=== PATIENT | female | born 1955 | race Caucasian/White ===

== ENCOUNTER 2017-09-10 07:21 | Inpatient (IN) | payer BC, OTHER ==
[2017-09-02 14:28] VITALS: BMI 23.0
--- NOTE | 2017-09-02 14:59 | PAT Medication Instructions ---
Service Date Sep 02, 2017. Current Home Medication List Albuterol Hfa (Ventolin Hfa), 2 PUFFS INH Q6H PRN for PRN Atenolol (Tenormin), 50 MG PO QAM Atomoxetine (Strattera), 100 MG PO QAM Clonazepam (Klonopin), 0.5 MG PO BID PRN for PRN Fluticasone Prop/Salmeterol (Advair Diskus 500/50 60 Dose), 1 PUFF INH BID Losartan Potassium (Cozaar), 100 MG PO QAM Multivitamin (Multivitamin), 1 TAB PO QAM [Iton Tab], 1 TAB PO QAM Medication Instructions For Your Scheduled Surgery - Hold the following medications the morning of surgery: Atomoxetine (Strattera), 100 MG PO QAM Clonazepam (Klonopin), 0.5 MG PO BID PRN for PRN Losartan Potassium (Cozaar), 100 MG PO QAM Multivitamin (Multivitamin), 1 TAB PO QAM [Iton Tab], 1 TAB PO QAM - Take the following medications the morning of surgery with a sip of water: Albuterol Hfa (Ventolin Hfa), 2 PUFFS INH Q6H PRN for PRN (if needed) Atenolol (Tenormin), 50 MG PO QAM Fluticasone Prop/Salmeterol (Advair Diskus 500/50 60 Dose), 1 PUFF INH BID - Take the following medications as scheduled the night before surgery: Albuterol Hfa (Ventolin Hfa), 2 PUFFS INH Q6H PRN for PRN (if needed) Clonazepam (Klonopin), 0.5 MG PO BID PRN for PRN (if needed) Fluticasone Prop/Salmeterol (Advair Diskus 500/50 60 Dose), 1 PUFF INH BID If you have any questions please call us at [phone] or [phone] or [phone]
[2017-09-02 16:07] LABS: PTT PATIENT 24.3 SECONDS (21.0-31.0)
[2017-09-03 06:23] LABS: HEMOGLOBIN A1C 5.5 % (4.5-5.6)
--- NOTE | 2017-09-09 19:23 | HISTORY & PHYSICAL EXAMINATION ---
DATE OF ADMISSION: 09/10/2017 CHIEF COMPLAINT: Chronic left shoulder pain and decreased strength. HISTORY OF PRESENT ILLNESS: This is a 62-year-old female patient of Dr. Harris'samira complaining of chronic left shoulder pain and weakness originally diagnosed with a fall at home. She failed conservative treatment including intraarticular injections, over the counter anti-inflammatories and arthroscopic surgeries x2. She now wishes to proceed with a left reverse total shoulder arthroplasty. PAST MEDICAL HISTORY: Hypertension, irregular heartbeat, asthma, anxiety. SOCIAL HISTORY: Nonsmoker, nondrinker. FAMILY HISTORY: Noncontributory. PAST SURGICAL HISTORY: Elbert-en-Y bypass surgery, shoulder surgery x2, breast biopsy. MEDICATIONS: 1. Advair Diskus 1 puff 2 times daily as needed. 2. Albuterol sulfate inhaler 90 mcg 2 puffs q. 12 hours p.r.n. 3. Klonopin 1 mg every 2 days as needed. 4. Hyzaar 50/12.5 mg 1 tablet daily. 5. Atenolol 50 mg daily. 6. Strattera 100 mg daily. 7. Losartan 100 mg daily. 8. Iron 325 daily. ALLERGIES: IRON SUCROSE COMPLEX INCLUDING VENOFER. PHYSICAL EXAMINATION: GENERAL: Well-developed, well-nourished 62-year-old female patient of Dr. Harris'samira complaining of chronic left shoulder pain. HEENT: Normocephalic, atraumatic. Extraocular motions are intact. Pupils are equal and reactive to light. HEART: Regular rate and rhythm. No murmurs are appreciated. LUNGS: Clear. ABDOMEN: Soft and nontender. Bowel sounds present. EXTREMITIES: Left shoulder reveals limited range of motion with pain and crepitation. She has 3/5 strength globally. NEUROLOGIC: Neurovascularly she is intact in her left upper extremity. DIAGNOSES: Left shoulder chronic rotator cuff arthropathy with a history of hypertension, irregular heartbeat, asthma, anxiety. PLAN: The patient was advised of her diagnosis. Indications, risks, benefits, and postop course have all been reviewed. The patient wishes to proceed with a left shoulder reverse total shoulder arthroplasty. Necessary consent forms, preoperative testing and clearances will be obtained.
[~2017-09-10] VITALS: Ht 157.5 cm; Wt 57.5 kg
[2017-09-10] VITALS (8 sets, daily range): BP systolic 91–120; BP diastolic 57–73; PULSE 73–99; TEMP 36.3–37.2; O2SAT 96–99; Ht 157.5 cm; Wt 57.5 kg
[~2017-09-10 07:21] MED LIST: ACETAMINOPHEN 500 MG TAB PO SCH; ADVIN50/60 INH; ATEN50TA8 PO; ATOM25CA PO; BUPIVACAINE 0.5 % 5 MG/1 ML PF 10ML VIAL ONE; CEFAZOLIN 1000MG IV PUSH 7.5 ML IV SCH; CLON1TAB3 PO; CLONIDINE HCL 100 MCG/ML SYRINGE ONE; CeleBREX 200 MG CAP PO SCH; DEXAMETHASONE 4 MG TAB PO SCH; FAMOTIDINE 20 MG TAB PO SCH; FERR-24 PO; GABAPENTIN 600 MG PO SCH; LACTATED RINGER'S 1000ML 1,000 ML IV SCH; LIDOCAINE HCL 2% 2 ML VIAL (20MG/ML) ONE; LOSA1TAB38 PO; MEPIVACAINE HCL 1.5% 30 ML VIAL ONE; METOCLOPRAMIDE HCL 10 MG TAB PO SCH; MULT-506 PO; PROPOFOL IV EMULSION 10 MG/ML 20 ML VIAL IV ONE; VNTHFA/IN INH
[2017-09-10] MEDS ORDERED: MIDAZOLAM HCL 1 MG/ML 2ML VIAL ONE (08:06)
[2017-09-10] MEDS ORDERED: FENTANYL CITRATE INJ 50 MCG/1 ML 2 ML VIAL ONE (08:07)
[2017-09-10] MEDS ORDERED: ROCURONIUM BROMIDE 10 MG/ML 5 ML VIAL IV ONE ×2 (08:10→12:15)
--- NOTE | 2017-09-10 09:44 | History & Physical Bridge Note ---
H&P Re-Evaluation Bridge Note: I have examined the patient, reviewed the History & Physical and in the interval since the performance of the History & Physical I have noted the following changes of clinical significance: No changes noted
[2017-09-10] MEDS ORDERED: BACITRACIN 50000 UNIT VIAL ONE (09:48)
[2017-09-10] MEDS ORDERED: ONDANSETRON INJ 2 MG/ML 2 ML VIAL ONE (10:30)
[2017-09-10] MEDS ORDERED: DEXAMETHASONE SOD INJ 4 MG/ML VIAL ONE (10:30)
[2017-09-10] MEDS ORDERED: NEOSTIGMINE METHYLSULFATE 5 MG/5 ML SYR ONE (10:55)
[2017-09-10] MEDS ORDERED: GLYCOPYRROLATE INJ 0.2 MG/ML VIAL ONE ×2 (10:55→12:34)
[2017-09-10] MEDS ORDERED: EpHEDrine SULFATE INJ 50 MG/ML AMP ONE (11:06)
--- NOTE | 2017-09-10 13:03 | [facility] Post Operative Brief Note ---
Immediate Operative Summary Operative Date Sep 10, 2017. Pre-Operative Diagnosis Left Shoulder Chronic Rotator Cuff Arthropathy,end stage glenohumeral djd,failed rotator cuff repair,nonrepairable rotator cuff Post-Operative Diagnosis same as pre-operative Procedure(s) Performed Left Reverse Total Shoulder Arthroplasty, Left Biceps Tenodesis, Hardware removal (suture anchors). Surgeon Dr. Joe Harris Short Filler Bunch Machine Operator Surgeon(s) Donato Rodas PA-C Estimated Blood Loss 100mL Findings Consistent with Post-Op Diagnosis Specimens Permanent: A. Left Humeral Head B. Explanted Suture anchors Drains 2 hemovac Anesthesia Type General Complication(s) none
[2017-09-10] MEDS ORDERED: ONDANSETRON INJ 2 MG/ML 2 ML VIAL IV PRN ×2 (13:15)
[2017-09-10] MEDS ORDERED: CLONAZEPAM 0.5 MG TAB PO PRN (13:15)
[2017-09-10] MEDS ORDERED: FLUMAZENIL 0.1 MG/1 ML 10 ML VIAL IV PRN (13:15)
[2017-09-10] MEDS ORDERED: SOD PHOSPHATE/SOD BIPHOSPHATE ENEMA 132 ML BTL PR PRN (13:15)
[2017-09-10] MEDS ORDERED: HYDROmorphone INJ 1 MG/ML SYR IV PRN (13:15)
[2017-09-10] MEDS ORDERED: ZOLPIDEM TARTRATE 5 MG TAB PO PRN (13:15)
[2017-09-10] MEDS ORDERED: ATROPINE SULFATE 0.1 MG/ML 5ML SYR IV PRN (13:15)
[2017-09-10] MEDS ORDERED: MAGNESIUM HYDROXIDE SUSP 30 ML UDC PO PRN (13:15)
[2017-09-10] MEDS ORDERED: ALBUTEROL HFA 8 GM INHALER INH PRN (13:15)
[2017-09-10] MEDS ORDERED: METOCLOPRAMIDE HCL INJ 5 MG/ML 2 ML VIAL IV PRN (13:15)
[2017-09-10] MEDS ORDERED: NALOXONE HCL 0.4 MG/1 ML VIAL/CARP IV PRN ×2 (13:15)
[2017-09-10] MEDS ORDERED: EpHEDrine SULFATE INJ 50 MG/ML AMP IV PRN (13:15)
[2017-09-10] MEDS ORDERED: MoRPHine SULFATE 2 MG/ML CARP IV PRN (13:15)
[2017-09-10] MEDS ORDERED: PROMETHAZINE HCL INJ 12.5 MG in SODIUM CHLORIDE 0.9% 50ML 50 ML IV PRN (13:15)
[2017-09-10] MEDS ORDERED: BISACODYL 10 MG SUPP PR PRN (13:15)
--- NOTE | 2017-09-10 13:30 | DIAGNOSTIC IMAGING REPORT ---
L SHOULDER MIN 2 VIEWS ROUTINE CLINICAL HISTORY: Post shoulder surgery COMPARISON: None. DISCUSSION: Anatomic alignment status post total left shoulder arthroplasty. Expected soft tissue postoperative change. Contact between prosthetic and underlying bone. Expected soft tissue postoperative change IMPRESSION: Anatomic alignment posttotal left shoulder arthroplasty. The above report was generated using voice recognition software. It may contain grammatical, syntax or spelling errors. Electronically signed by: Donato Cervantes M.D. 09/10/2017 1:29 PM Dictated Date/Time: 09/10/2017 1:28 PM
--- NOTE | 2017-09-10 13:47 | Anesthesiology Progress Note ---
Anesthesia Post Op Note Date & Time Sep 10, 2017 at 13:47 Vital Signs Pain Intensity: 0 Vital Signs Past 12 Hours Date Time Temp Pulse Resp B/P (MAP) Pulse Ox O2 Delivery O2 Flow Rate FiO2 09/10/17 13:40 70 14 107/69 100 Nasal Cannula 2 09/10/17 13:30 36.4 67 14 106/71 100 Oxymask 8 09/10/17 13:20 66 18 114/74 100 Oxymask 8 09/10/17 13:13 35.8 72 16 106/74 100 Oxymask 8 09/10/17 08:30 36.3 74 20 120/73 98 Room Air 09/10/17 07:50 36.3 74 20 120/73 (89) 98 Room Air Notes Mental Status: alert / awake / arousable, participated in evaluation Pt Amnestic to Procedure: Yes Nausea / Vomiting: adequately controlled Pain: adequately controlled Airway Patency, RR, SpO2: stable & adequate BP & HR: stable & adequate Hydration State: stable & adequate Anesthetic Complications: no major complications apparent
--- NOTE | 2017-09-10 14:49 | OPERATIVE REPORT ---
DATE OF OPERATION: 09/10/2017 INDICATION FOR PROCEDURE: The patient is a 62-year-old female with a history of a rotator cuff tear of the left shoulder and had a subsequent rotator cuff repair. She had a failed rotator cuff repair. She has had chronic pain and weakness since that time. Then over time, she has developed gradual rotator cuff arthropathy. Now, she is [id number] in the superior glenohumeral joint space and clinically when she rotates her arm, there is clearly [id number] crepitation consistent with end-stage glenohumeral DJD. The patient has had multiple injections, and she has failed conservative management of all types. She cannot live with the symptoms anymore. Although, she is young at 62 years old, there is no other treatment options for her than reverse shoulder replacement. She has already had another joint replacement elsewhere and wants to just have pain relief. She is also recommended to being compliant with a 20-pound lift limit, which we discussed preoperatively. PREOPERATIVE DIAGNOSES: End-stage glenohumeral degenerative joint disease, rotator cuff arthropathy, failed rotator cuff repair, nonrepairable rotator cuff tear. POSTOPERATIVE DIAGNOSES: Same with retained hardware status post rotator cuff repair. OPERATIVE PROCEDURE: Left reverse total shoulder arthroplasty, biceps tenodesis, hardware removal of suture anchors x3 and suture material status post prior rotator cuff repair. SURGEON: Dr. Harris. NAILING MACHINE FEEDER: Donato Rodas PA-C. ANESTHESIA: Regional block and general. DESCRIPTION OF PROCEDURE: The patient was taken to the operating room and anesthetized regional block and general anesthetic. She was placed on the operating room table in a 30 degree beach chair position. A towel roll was placed in the medial border of her left scapula. She was translated to left side of the bed, so her shoulder could be manipulated off the bed as necessary. She had protective eyewear foam headrest. She had TEDs and SCDs. Her left shoulder was then examined under anesthesia. She is a thin individual, she has a petite female. She had 120 degrees of flexion, 90 degrees of abduction, external rotation 45, internal rotation 90. She had [id number] crepitation. She had old scars that were healed from prior arthroscopic repair. Left shoulder was sterilely prepped and draped with ChloraPrep. An anterior deltopectoral approach was performed in a longitudinal fashion. Skin was incised sharply. Subcutaneous flaps were elevated. She had no cephalic vein. Deltopectoral interval was divided and reflected down to the conjoined tendon. Conjoined tendon was clearly identified from the coracoid process down to the pectoralis tendon. The scarred clavipectoral fascia was released on the lateral aspect of the conjoined tendon up to the CA ligament, which was just released a few millimeters, but essentially preserved. The upper centimeter of the pectoralis was released for inferior exposure. We identified the biceps tendon, we tenodesed the biceps tendon to the pectoralis tendon with interrupted #2 Fiberwire sutures, and we resected the biceps tendon proximally. There was some tendinopathic biceps tendon which was scarred down in the bicipital groove and this was all resected. The circumflex vessels were tied off with silk ties and divided laterally. The subscapularis muscle fibers were split at the level of the circumflex vessels down to the capsule, reflected off the capsule with a Kitner elevator and we identified the axillary nerve and protected with a blunt Hohmann retractor. There was a fairly thickened scarred subscapularis bursa and rotator cuff, subacromial bursa which was all resected. There is around the supraspinatus that was resected. The patient had intact teres minor, but torn infraspinatus which was healed and sort of attenuated position with a thin layer of scar tissue. It could not be advanced for any meaningful repair. The subscapularis was then taken down starting through the bicipital groove and then a subperiosteal dissection off the lesser tuberosity and then the capsule was released around the neck inferiorly on the humerus staying on bone subperiosteal release of the capsule. The humeral head was exposed and the patient had an exposed eburnated bone on the upper aspect of the humeral head that would articulate with the upper glenoid, the upper half of the glenoid was eburnated bone. The lower half so had good articular cartilage. The humerus was then retracted posterior to the glenoid, the capsule was released down to the 7 o'clock position staying above the level of the axillary nerve and this was protected with the Damaris retractor. I released the capsule off the anterior glenoid and then the rotator interval was released down to the fat and coracohumeral ligament was released, so we had a 360 degree release of the subscapularis. At the end of the tendon, we had a #1 Vicryl traction suture placed into it. This was retracted into the Bankart retractor, the remnants of the supraspinatus was resected, labral tissue was resected circumferentially, we did anterior inferior and posterior-inferior capsular release with electrocautery on bone and a Aguila elevator used and triceps was released. The humerus was then exposed with extension and external rotation. I used the Tornier total shoulder arthroplasty reversed system with the Ascend Flex humerus components and long stem and the Aequalis II glenoid components. The humeral cutting guide was placed into the shaft of the humerus, the cut was made in 20 degrees of retroversion. Then I removed multiple anchors so we could place the stem in place. We had to remove 3 anchors that were to be PEEK anchors. We removed small suture material as well. At this time, we used a broach system and although she sized up to a 2 felt could stay at a size 1 as we may need to lower the resection on the cut, because the patient had a tight shoulder and she was a very petite individual. So, we went ahead with 1 broach then a cup protector then retracted just posterior to the glenoid, curetted all the glenoid articular surface off that remained so we got the true version of the glenoid. I then placed the initial drill hole in 10 degrees of inferior tilt with a 25 mm baseplate. The baseplate reamer was used with good bone contact. Then, I went ahead and widened the hole for the central peg of the baseplate and then we used a 25 mm hydroxyapatite coated standard baseplate, which was impacted in position with a tight pressfit and screws were placed 18 mm anterior and posterior compression screws and superior and inferior 26 and 35 mm locking screws were placed. This had excellent fixation of patient's hard bone. Then we used the fan reamer to prepare for the 36 glenosphere. I irrigated out all the bone fragments with antibiotic solution and bacitracin and then placed a 36 x 25 mm standard glenosphere in position and impacted that until it was tight and tightened the screw and ensured it was in tight and in good position. Then attention was taken to the humerus. I placed some trials on the stem and felt that the humerus was a bit too tight to reduce it, so we went ahead and set the 1 B stem deeper and cut more neck to facilitate reduction. We made sure the patient was fully muscle relaxed. We went to a posterior offset which seemed to improve the tension of this and then went with a +6 x 36 poly insert trial and we were able to reduce this and have the shoulder be completely stable. There was no shuck and she had a stable range of motion with the trial. The trial was removed using a bone hook. Then after irrigation of the canal, we placed 2 drill holes through the bicipital groove and neck of the humerus area and placed a #5 FiberWire sutures transosseously and then irrigated out the canal copiously and then assembled the 1B PTC long stem Ascend Flex stem to the 0 offset tray and that was assembled to the 36.6 poly insert. After the component was assembled, it was impacted in position with tight pressfit. Then we reduced the humeral implant to the glenoid. Verified stability through 120 degrees of forward elevation, 90 degrees of abduction and exercise 50 and 90 degrees of internal rotation. The wound was copiously irrigated with antibiotic solution and bacitracin. Then, the subscapularis was repaired with Andrzej-Skip suture technique using #5 FiberWires lateral row, soft tissue repair with [id number] #2 FiberWire sutures. Verified 90 degrees of abduction and 120 degrees of forward elevation, 50 degrees of external rotation with no tension on the repair. After further irrigation, the pectoralis release was repaired with [id number] #2 FiberWire sutures passing sutures back through the biceps tendon to reinforce biceps tenodesis. The 2 drains were brought out laterally and placed deep to deltopectoral repair and then the deltopectoral 4 with [id number] #1 Vicryl sutures. Subcutaneous tissue closed with interrupted 2-0 Vicryl sutures, skin closed with dominick. Sterile dressings applied and the patient tolerated the procedure well. Estimated blood loss was some Marcaine 7500 mL and Donato Rodas PA-C was my therapist's assistant and he functioned as therapist's assistant and present for the entire procedure. He assisted in patient positioning, prepping, draping, arm positioning, soft tissue retraction, instrument management and assisted in the subcutaneous skin closure and will participate in the postoperative care of the patient. I attest to the content of the Intraoperative Record and any orders documented therein. Any exception s are noted below.
[2017-09-10] MEDS ORDERED: MoRPHine SULFATE 4 MG/ML 1 ML CARP\\VIAL IV PRN (16:00)
[2017-09-10] MEDS ORDERED: ACETAMINOPHEN 500 MG TAB PO SCH (16:00)
--- NOTE | 2017-09-10 17:04 | Medical Consult ---
Consultation Date of Consultation: Sep 10, 2017. Attending Physician: Joe Harris M.D. Reason for Consultation: Medical Management History of Present Illness 62 y/o F who was admitted earlier today s/p L reverse shoulder with Dr. Harris. She is doing quite well. She is starting to regain feeling in her fingers. She is not hungry at present, but states this is her usual. No n/v. Pt denies fever, SOB, chest pain, abd pain, c/d, LE pain or swelling. She states she is feeling "wired" since coming up from the OR. Pt states her asthma is generally very well controlled. Her last asthma exacerbation was in her 30s and she has only called EMS twice in her life for this. Past Medical/Surgical History Asthma HTN Anxiety Hx of gastric bypass Irregular HR Social History Smoking Status: Current Every Day Smoker Drug Use: none Allergies Coded Allergies: Iron (Verified Allergy, Severe, IV IRON = ANAPHYLATIC SHOCK, RESPIRATORY DISTRESS, 09/10/17) Current Inpatient Medications Current Inpatient Medications Medications (Trade) Dose Ordered Sig/Vinny Route Start Time Stop Time Status Last Admin Dose Admin Hydromorphone HCl (Dilaudid Inj) 0.25 mg Q5M PRN IV 09/10/17 13:15 09/10/17 18:15 Naloxone HCl (Narcan Inj) 0.2 mg Q2M PRN IV 09/10/17 13:15 09/10/17 18:15 Flumazenil (Romazicon Inj) 0.2 mg Q2M PRN IV 09/10/17 13:15 09/10/17 18:15 Ondansetron HCl (Zofran Inj) 4 mg ONE PRN IV 09/10/17 13:15 09/10/17 18:15 Promethazine HCl 12.5 mg/Sodium Chloride 50.5 ml @ 202 mls/hr ONE PRN IV 09/10/17 13:15 09/10/17 18:15 Ephedrine Sulfate (EpHEDrine SULFATE INJ) 5 mg Q5M PRN IV 09/10/17 13:15 09/10/17 18:15 Atropine Sulfate (Atropine Sulfate 0.1mg/ml Inj) 0.5 mg Q1M PRN IV 09/10/17 13:15 09/10/17 18:15 Albuterol (Ventolin Hfa Inhaler) 2 puffs Q6H PRN INH 09/10/17 13:15 10/10/17 13:14 Atenolol (Tenormin Tab) 50 mg QAM PO 09/11/17 09:00 10/11/17 08:59 Atomoxetine HCl (Strattera Cap) 100 mg QAM PO 09/11/17 09:00 10/11/17 08:59 Clonazepam (Klonopin Tab) 0.5 mg BID PRN PO 09/10/17 13:15 10/10/17 13:14 Salmeterol Xinafoate/ Fluticasone (Advair Diskus 500/50 Inh) 1 puff BID INH 09/10/17 21:00 10/10/17 20:59 Losartan Potassium (coZAAR TAB) 100 mg QAM PO 09/11/17 09:00 10/11/17 08:59 Diphenhydramine HCl (Benadryl Cap) 25 mg Q8 PRN PO 09/10/17 13:15 10/10/17 13:14 Zolpidem Tartrate (Ambien Tab) 5 mg HSZ PRN PO 09/10/17 13:15 10/10/17 13:14 Metoclopramide HCl (Reglan Inj) 10 mg Q6H PRN IV 09/10/17 13:15 10/10/17 13:14 Ondansetron HCl (Zofran Inj) 4 mg Q6H PRN IV 09/10/17 13:15 10/10/17 13:14 Pantoprazole Sodium (Protonix Tab) 40 mg QAM PO 09/11/17 09:00 09/14/17 09:01 Potassium Chloride/Dextrose/ Sod Cl 1,000 ml @ 100 mls/hr Q10H IV 09/10/17 16:00 09/11/17 12:00 Oxycodone HCl (Roxicodone Immediate Rel Tab) `1-2 TABS FOR PAIN `1 TAB... Q4H PRN PO 09/10/17 13:15 09/24/17 13:14 Acetaminophen (Tylenol Tab) 1,000 mg Q8 PO 09/10/17 16:00 10/10/17 15:59 Morphine Sulfate (MoRPHine SULFATE INJ) 2 mg Q2H PRN IV 09/10/17 13:15 09/24/17 13:14 Naloxone HCl (Narcan Inj) 0.1 mg Q2M PRN IV 09/10/17 13:15 10/10/17 13:14 Magnesium Hydroxide (Milk Of Magnesia Susp) 30 ml Q6H PRN PO 09/10/17 13:15 10/10/17 13:14 Bisacodyl (Dulcolax Supp) 10 mg DAILY PRN FL 09/10/17 13:15 10/10/17 13:14 Sodium Biphosphate/ Sodium Phosphate (Fleet Enema) 132 ml DAILY PRN FL 09/10/17 13:15 10/10/17 13:14 Docusate Sodium (coLACE CAP) 100 mg BID PO 09/10/17 21:00 10/10/17 20:59 Cefazolin Sodium 1000 mg/Syringe 7.5 ml @ 2.5 mls/min Q8H IV 09/10/17 18:00 09/11/17 02:02 Aspirin (Ecotrin Tab) 325 mg QAM PO 09/11/17 09:00 10/11/17 08:59 Morphine Sulfate (MoRPHine SULFATE INJ) 4 mg Q2H PRN IV 09/10/17 16:00 09/24/17 15:59 Review of Systems Pertinent positives and negatives reviewed in HPI--all others negative Physical Exam Date Time Temp Pulse Resp B/P (MAP) Pulse Ox O2 Delivery O2 Flow Rate FiO2 09/10/17 16:30 37.2 98 18 104/68 (80) 97 Nasal Cannula 2.0 09/10/17 16:01 36.8 78 18 107/70 (82) 98 Nasal Cannula 2.0 09/10/17 15:00 91 18 98/62 100 Nasal Cannula 2 09/10/17 14:45 71 16 99/63 100 Nasal Cannula 2 09/10/17 14:30 63 16 98/63 100 Nasal Cannula 2 09/10/17 14:20 83 16 102/74 100 Nasal Cannula 2 09/10/17 14:05 70 18 101/73 100 Nasal Cannula 2 09/10/17 13:55 36.3 60 16 107/69 100 Nasal Cannula 2 09/10/17 13:40 70 14 107/69 100 Nasal Cannula 2 09/10/17 13:30 36.4 67 14 106/71 100 Oxymask 8 09/10/17 13:20 66 18 114/74 100 Oxymask 8 09/10/17 13:13 35.8 72 16 106/74 100 Oxymask 8 09/10/17 08:30 36.3 74 20 120/73 98 Room Air 09/10/17 07:50 36.3 74 20 120/73 (89) 98 Room Air General Appearance: WD/WN, no apparent distress Head: normocephalic, atraumatic Eyes: normal inspection, sclerae normal Respiratory/Chest: normal breath sounds, no respiratory distress Cardiovascular: regular rate, rhythm, no edema Abdomen/GI: non tender, soft Extremities/Musculoskelatal: no calf tenderness, no pedal edema Neurologic/Psych: alert, normal mood/affect, oriented x 3 Skin: normal color, warm/dry Assessment & Plan 62 y/o F who was admitted on 09/10 s/p L reverse shoulder with Dr. Harris. L shoulder: as per ortho DVT proph and diet as per ortho Asthma: stable at baseline and doing well post-op HTN: continue home meds Anxiety: continue home meds
[2017-09-10] MEDS: D5W AND 1/2NSS + 20MEQ KCL 1,000 ML IV SCH (17:22)
[2017-09-10] MEDS: CEFAZOLIN IV 1,000 MG in SYRINGE 0 ML IV SCH (17:22)
[2017-09-10] MEDS: FLUTICASONE/SALMETEROL (ADVAIR) 500/50 INH 14 PUFF INH SCH (21:00)
[2017-09-10] MEDS: DOCUSATE SODIUM 100 MG CAP PO SCH (21:02)
[2017-09-11] MEDS: OXYCODONE HCL IR 5 MG TAB (IMMEDIATE RELEASE) PO PRN ×5 (02:12→21:25)
[2017-09-11] MEDS: CEFAZOLIN IV 1,000 MG in SYRINGE 0 ML IV SCH (02:13)
[2017-09-11] MEDS: ACETAMINOPHEN 500 MG TAB PO SCH ×3 (02:13→17:47)
[2017-09-11] MEDS: D5W AND 1/2NSS + 20MEQ KCL 1,000 ML IV SCH ×2 (02:14→13:03)
[2017-09-11 03:31] VITALS: BP 119/80; PULSE 86; TEMP 37; O2SAT 92
[2017-09-11 05:55] LABS: HEMATOCRIT 31.2 % (37-47); HEMOGLOBIN 10.9 g/dL (12.0-16.0); MEAN CELL VOLUME 94.8 fL (80-100); MEAN CORPUSCULAR HEMOGLOBIN 33.1 pg (25-34); MEAN CORPUSCULAR HGB CONC 34.9 g/dl (32-36); MEAN PLATELET VOLUME 9.2 fL (7.4-10.4); PLATELET COUNT 307 K/uL (130-400); RED CELL DISTRIBUTION WIDTH SD 45.1 fL (36.4-46.3); WHITE BLOOD COUNT 11.58 K/uL (4.8-10.8)
[2017-09-11 06:36] LABS: CALCIUM 8.9 mg/dl (8.5-10.1); CREATININE 0.71 mg/dl (0.60-1.20); POTASSIUM 3.9 mmol/L (3.5-5.1)
[2017-09-11 07:11] VITALS: BP 117/75; PULSE 75; TEMP 36.9; O2SAT 94
--- NOTE | 2017-09-11 08:16 | Orthopedic Progress Note ---
Orthopedic Progress Note Date of Service Sep 11, 2017. Subjective Post OP Day: 1 Reports: feeling well, pain controlled w PO medications, Denies: complaints, chest pain, SOB, nausea / vomiting, light headedness, calf pain Objective N/V intact, capillary refill less than 2 sec., dressing C/D/I, A&O x3 Fingers mobile, sling in tact. Date Time Temp Pulse Resp B/P (MAP) Pulse Ox O2 Delivery O2 Flow Rate FiO2 09/11/17 07:11 36.9 75 19 117/75 (89) 94 Room Air 09/11/17 03:31 37.0 86 16 119/80 (93) 92 Room Air 09/10/17 23:40 Room Air 09/10/17 23:02 37.0 73 16 102/66 (78) 96 Room Air 09/10/17 19:07 37.2 99 18 102/63 (76) 97 Room Air 09/10/17 17:32 36.9 94 18 102/67 (79) 99 Room Air 09/10/17 16:30 37.2 98 18 104/68 (80) 97 Nasal Cannula 2.0 09/10/17 16:01 36.8 78 18 107/70 (82) 98 Nasal Cannula 2.0 09/10/17 15:30 Nasal Cannula 2.0 09/10/17 15:30 36.9 94 18 91/57 (68) 98 Nasal Cannula 2.0 09/10/17 15:30 Nasal Cannula 2.0 09/10/17 15:00 91 18 98/62 100 Nasal Cannula 2 09/10/17 14:45 71 16 99/63 100 Nasal Cannula 2 09/10/17 14:30 63 16 98/63 100 Nasal Cannula 2 09/10/17 14:20 83 16 102/74 100 Nasal Cannula 2 09/10/17 14:05 70 18 101/73 100 Nasal Cannula 2 09/10/17 13:55 36.3 60 16 107/69 100 Nasal Cannula 2 09/10/17 13:40 70 14 107/69 100 Nasal Cannula 2 09/10/17 13:30 36.4 67 14 106/71 100 Oxymask 8 09/10/17 13:20 66 18 114/74 100 Oxymask 8 09/10/17 13:13 35.8 72 16 106/74 100 Oxymask 8 09/10/17 08:30 36.3 74 20 120/73 98 Room Air Laboratory Results 24 Hours: Test 09/11/17 05:43 Hematocrit 31.2 % Hemoglobin 10.9 g/dL Assessment & Plan Assessment: POD #1, Left Reversed TSA, biceps tenodesis Plan: Limited PT/ OT as ordered No formal PT DVT proph- ASA As per medicine Inhouse Planning Pain Management: Morphine, PO Tylenol, Oxy IR DVT Prophylaxis: SCDs, ASA Discharge Planning Discharge Planning: home Pain Management: PO Tylenol, Oxy IR DVT Prophylaxis: ASA
--- NOTE | 2017-09-11 08:17 | Discharge Instructions ---
Discharge Instructions Date of Service Sep 11, 2017. Admission Reason for Admission: Left Shoulder Rotator Cuff Arthropathy Discharge Discharge Diagnosis / Problem: Left Reversed TSA, biceps tenodesis Discharge Goals Goal(s): Improve function Activity Recommendations Activity Limitations: as noted below . Instructions / Follow-Up Instructions / Follow-Up ACTIVITY RECOMMENDATIONS: SELF CARE INSTRUCTIONS AFTER TOTAL SHOULDER ARTHROPLASTY REVERSE A. You may do daily exercises as taught in physical therapy while in hospital. No lifting with the operative arm. B. You are to wear your sling/immobilizer at all times EXCEPT when performing your daily exercises and for hygiene purposes. C. You may perform dry, daily dressing changes. Please keep your incision covered. You may shower 48 hours after surgery. Do not apply soap or any ointment/ lotions directly over incision. Do not soak incision in bath tub/swimming pool. D. You may use ice as needed to operative shoulder. SPECIAL CARE INSTRUCTIONS: VERY IMPORTANT TO READ AND REVIEW A. There are a few signs you need to watch for after you are home. Call [facility] at [phone] if you experience any of the followin. Increased severe shoulder pain. Some pain is expected especially when you exercise. 2. Increased swelling in you shoulder or arm; pain or swelling in either upper extremity. 3. Any fluid drainage from the incision. 4. Shortness of breath or chest pain. B. Please call [facility] at [phone] if you have any questions or concerns about your operation or recovery. C. Call your physician if: 1. Temperature is greater than 101 degrees (F). 2. Pain is not relieved by prescribed pain medications. 3. Increase drainage or redness from incision. 4. Unanswered questions or concerns. FOLLOW UP VISIT: Please call [facility] at [phone] to schedule a follow up appointment with Dr. Harris or his PA in 12-14 days from your surgery date. Current Hospital Diet Patient's current hospital diet: Regular Diet Discharge Diet Recommended Diet: Regular Diet Procedures Procedures Performed: Left Reverse Total Shoulder Arthroplasty, Left Biceps Tenodesis, Hardware removal (suture anchors). Pending Studies Studies pending at discharge: no Laboratory Results Hemoglobin A1c Test 09/02/17 15:09 Range/Units Estimated Average Glucose 111 mg/dl Hemoglobin A1c 5.5 4.5-5.6 % Medical Emergencies . Who to Call and When: Medical Emergencies: If at any time you feel your situation is an emergency, please call 911 immediately. . Non-Emergent Contact Non-Emergency issues call your: Primary Care Provider . "Provider Documentation" section prepared by Donato Rodas. . VTE Core Measure Inpt VTE Proph given/why not?: Other Anticoagulation (asa), SCD's [place] Drug Monitoring Program Search Results: patient reviewed within database, no issues identified
[2017-09-11] MEDS: DOCUSATE SODIUM 100 MG CAP PO SCH ×2 (09:32→21:26)
[2017-09-11] MEDS: ASPIRIN 325 MG ECTAB PO SCH (09:33)
[2017-09-11] MEDS: LOSARTAN POTASSIUM 50 MG TAB PO SCH (09:33)
[2017-09-11] MEDS: PANTOprazole SOD 40 MG TAB PO SCH (09:33)
[2017-09-11] MEDS: ATOMOXETINE 25 MG CAP PO SCH (09:34)
[2017-09-11] MEDS: FLUTICASONE/SALMETEROL (ADVAIR) 500/50 INH 14 PUFF INH SCH ×2 (09:34→21:25)
--- NOTE | 2017-09-11 10:26 | Anesthesiology Progress Note ---
Anesthesia Post Op Note Date & Time Sep 11, 2017 at 10:24 Vital Signs Vital Signs Past 12 Hours Date Time Temp Pulse Resp B/P (MAP) Pulse Ox O2 Delivery O2 Flow Rate FiO2 09/11/17 07:11 36.9 75 19 117/75 (89) 94 Room Air 09/11/17 03:31 37.0 86 16 119/80 (93) 92 Room Air 09/10/17 23:40 Room Air 09/10/17 23:02 37.0 73 16 102/66 (78) 96 Room Air Notes Mental Status: alert / awake / arousable, participated in evaluation Pt Amnestic to Procedure: Yes Nausea / Vomiting: adequately controlled Pain: adequately controlled Airway Patency, RR, SpO2: stable & adequate BP & HR: stable & adequate Hydration State: stable & adequate Anesthetic Complications: no major complications apparent
[2017-09-11 15:42] VITALS: BP 97/64; PULSE 60; TEMP 36.6; O2SAT 98
--- NOTE | 2017-09-11 19:37 | Progress Note ---
Subjective Date of Service: Sep 11, 2017. Subjective Pt evaluation today including: conversation w/ patient, physical exam, chart review, lab review Pain: left shoulder only PO Intake: fair Voiding: no voiding problems other than left shoulder pain she otherwise has no complaints has not passed flatus following the surgery, however Review of Systems Respiratory: No cough, No wheezing, No shortness of breath, No dyspnea on exertion Cardiac: No chest pain Abdomen: No pain Objective Vital Signs Date Time Temp Pulse Resp B/P (MAP) Pulse Ox O2 Delivery O2 Flow Rate FiO2 09/11/17 15:42 36.6 60 18 97/64 (75) 98 Room Air 09/11/17 07:40 Room Air 09/11/17 07:11 36.9 75 19 117/75 (89) 94 Room Air 09/11/17 03:31 37.0 86 16 119/80 (93) 92 Room Air 09/10/17 23:40 Room Air 09/10/17 23:02 37.0 73 16 102/66 (78) 96 Room Air Physical Exam General Appearance: no apparent distress ENT: pharynx normal Neck: no JVD Respiratory/Chest: lungs clear, no respiratory distress, no accessory muscle use Cardiovascular: regular rate, rhythm, no gallop, no murmur Abdomen: normal bowel sounds, non tender, soft, no organomegaly Extremities: no pedal edema, + pertinent finding (left shoulder - dressing intact; sling intact; handgrip 5/5 on left) Laboratory Results Last 24 Hours Test 09/11/17 05:43 White Blood Count 11.58 K/uL Red Blood Count 3.29 M/uL Hemoglobin 10.9 g/dL Hematocrit 31.2 % Mean Corpuscular Volume 94.8 fL Mean Corpuscular Hemoglobin 33.1 pg Mean Corpuscular Hemoglobin Concent 34.9 g/dl RDW Standard Deviation 45.1 fL RDW Coefficient of Variation 13.0 % Platelet Count 307 K/uL Mean Platelet Volume 9.2 fL Sodium Level 137 mmol/L Potassium Level 3.9 mmol/L Chloride Level 107 mmol/L Carbon Dioxide Level 21 mmol/L Anion Gap 9.0 mmol/L Blood Urea Nitrogen 11 mg/dl Creatinine 0.71 mg/dl Est Creatinine Clear Calc Drug Dose 66.7 ml/min Estimated GFR () 107.3 Estimated GFR (Non- 92.6 BUN/Creatinine Ratio 15.6 Random Glucose 137 mg/dl Calcium Level 8.9 mg/dl Assessment and Plan 62yo female - 1. left shoulder reverse shoulder replacement - POD #1 - per ortho 2. asthma - not in exacerbation - allow albuterol prn 3. mild acute blood loss anemia - follow 4. HTN - controlled; cont atenolol & losartan; BMP stable today 5. h/o gastric bypass - noted will follow Continued [facility] stay due to: inadequate oral pain control, multiple IV medications needed Discharge planning: home
[2017-09-11 23:15] VITALS: BP 107/66; PULSE 69; TEMP 37.1; O2SAT 96
[2017-09-12] MEDS: ACETAMINOPHEN 500 MG TAB PO SCH ×2 (00:59→10:06)
[2017-09-12] MEDS: OXYCODONE HCL IR 5 MG TAB (IMMEDIATE RELEASE) PO PRN ×2 (06:10→10:06)
[2017-09-12 06:25] VITALS: BP 117/80; PULSE 72; TEMP 36.8; O2SAT 97
[2017-09-12 07:50] LABS: HEMATOCRIT 33.3 % (37-47); HEMOGLOBIN 11.3 g/dL (12.0-16.0); MEAN CELL VOLUME 96.5 fL (80-100); MEAN CORPUSCULAR HEMOGLOBIN 32.8 pg (25-34); MEAN CORPUSCULAR HGB CONC 33.9 g/dl (32-36); MEAN PLATELET VOLUME 9.7 fL (7.4-10.4); PLATELET COUNT 330 K/uL (130-400); RED CELL DISTRIBUTION WIDTH CV 13.1 % (11.5-14.5); RED CELL DISTRIBUTION WIDTH SD 46.4 fL (36.4-46.3); WHITE BLOOD COUNT 9.59 K/uL (4.8-10.8)
[2017-09-12 08:08] VITALS: BP 117/80; PULSE 72; TEMP 36.8; O2SAT 97
[2017-09-12 08:11] VITALS: BP 128/82; PULSE 87; TEMP 36.9; O2SAT 100
--- NOTE | 2017-09-12 08:12 | Orthopedic Progress Note ---
Orthopedic Progress Note Date of Service Sep 12, 2017. Subjective Post OP Day: 2 Reports: feeling well, Denies: chest pain, SOB, nausea / vomiting, light headedness, calf pain Objective calves soft nontender, N/V intact, capillary refill less than 2 sec., dressing C /D/I, A&O x3, toes mobile Date Time Temp Pulse Resp B/P (MAP) Pulse Ox O2 Delivery O2 Flow Rate FiO2 09/12/17 08:08 36.8 72 16 97 Room Air 09/12/17 08:07 Room Air 09/12/17 06:25 36.8 72 16 117/80 (92) 97 Room Air 09/12/17 01:07 Room Air 09/11/17 23:15 37.1 69 16 107/66 (80) 96 Room Air 09/11/17 16:30 Room Air 09/11/17 15:42 36.6 60 18 97/64 (75) 98 Room Air Laboratory Results 24 Hours: Test 09/12/17 07:24 Hematocrit 33.3 % Hemoglobin 11.3 g/dL Assessment & Plan Assessment: POD #2, Left Reversed TSA, biceps tenodesis Plan: Limited PT/ OT as ordered No formal PT DVT proph- ASA As per medicine DC HOME TODAY Inhouse Planning Pain Management: Morphine, PO Tylenol, Oxy IR DVT Prophylaxis: SCDs, ASA Discharge Planning Discharge Planning: home Pain Management: PO Tylenol, Oxy IR DVT Prophylaxis: ASA
[2017-09-12] MEDS ORDERED: ASPEC325 PO (08:16)
[2017-09-12] MEDS ORDERED: ACET-24 PO (08:16)
[2017-09-12] MEDS ORDERED: ONDA8TAB6 PO (08:16)
[2017-09-12] MEDS ORDERED: RXC5 PO (08:16)
[2017-09-12 08:22] LABS: CALCIUM 9.1 mg/dl (8.5-10.1); CREATININE 0.59 mg/dl (0.60-1.20); POTASSIUM 3.6 mmol/L (3.5-5.1)
[2017-09-12] MEDS: FLUTICASONE/SALMETEROL (ADVAIR) 500/50 INH 14 PUFF INH SCH (08:53)
[2017-09-12] MEDS: ASPIRIN 325 MG ECTAB PO SCH (08:54)
[2017-09-12] MEDS: ATOMOXETINE 25 MG CAP PO SCH (08:54)
[2017-09-12] MEDS: PANTOprazole SOD 40 MG TAB PO SCH (08:54)
[2017-09-12] MEDS: LOSARTAN POTASSIUM 50 MG TAB PO SCH (08:54)
[2017-09-12] MEDS: DOCUSATE SODIUM 100 MG CAP PO SCH (08:56)
[2017-09-12 09:15] VITALS: O2SAT 100
--- NOTE | 2017-09-12 21:18 | Progress Note ---
Progress Note Date of Service Sep 12, 2017. Progress Note Earlier today on my AM rounds I had gone to Ms. Alexander's room to pay her a visit but she had already been discharged home. Her labs and vitals remained stable overnight/this AM. She appeared medically fit for discharge based on the available data in her chart. Bro Cross MD
== END 2017-09-12 11:15 | disposition home or self-care (01) | DRG 483 ==
LOC: C.ACU 07:21 → C.3E 13:15 → ENRESERV 14:44
PROVIDERS: ADMIT Orthopaedic Surgery Sports Medicine; ATTEND Orthopaedic Surgery Sports Medicine
PROC: 0RRK00Z Replacement of Left Shoulder Joint with Reverse Ball and Socket Synthetic Substitute, Open Approach (ICD-10-PCS; principal; 2017-09-10 09:40)
PROC: 0LS20ZZ Reposition Left Shoulder Tendon, Open Approach (ICD-10-PCS; principal; 2017-09-10 09:40)
PROC: 0LPX0JZ Removal of Synthetic Substitute from Upper Tendon, Open Approach (ICD-10-PCS; principal; 2017-09-10 09:40)
DX: M75.122 Complete rotator cuff tear or rupture of left shoulder, not specified as traumatic (principal); M19.012 Primary osteoarthritis, left shoulder; I10 Essential (primary) hypertension; I49.9 Cardiac arrhythmia, unspecified; J45.909 Unspecified asthma, uncomplicated; F41.9 Anxiety disorder, unspecified; D50.9 Iron deficiency anemia, unspecified; F90.9 Attention-deficit hyperactivity disorder, unspecified type; F17.200 Nicotine dependence, unspecified, uncomplicated; Z72.89 Other problems related to lifestyle; Z98.84 Bariatric surgery status; Z98.1 Arthrodesis status; Z98.890 Other specified postprocedural states; Z88.8 Allergy status to other drugs, medicaments and biological substances